=== PATIENT | female | born 1970 | race Caucasian/White ===

== ENCOUNTER 2025-09-29 16:30 | Emergency (ER) | payer OTHER ==
[~2025-09-29] VITALS: Ht 160 cm; Wt 59.9 kg
[2025-09-29 20:46] VITALS: BP 105/70; TEMP 98; O2SAT 98
== END 2025-09-29 20:47 | disposition home or self-care (01) ==
LOC: ER 16:34
DX: S01.01XA Laceration without foreign body of scalp, initial encounter (principal); F32.A Depression, unspecified; R51.9 Headache, unspecified; W01.0XXA Fall on same level from slipping, tripping and stumbling without subsequent striking against object, initial encounter; Y93.89 Activity, other specified; Y92.89 Other specified places as the place of occurrence of the external cause; Y99.8 Other external cause status
CPT/HCPCS: 12001; 36415; 70450; 80320; 99284; A6403; G0480

== ENCOUNTER 2025-10-01 13:27 | Emergency (ER) | payer OTHER ==
[~2025-10-01] VITALS: Ht 170.2 cm; Wt 63.5 kg
[2025-10-01] MEDS: IV NS 0.9% 1,000 ML BAG IV ONE (14:01)
[2025-10-01 14:23] LABS: PLATELET COUNT (AUTO) 319 K/uL (150-450); RED BLOOD CELL COUNT(AUTO) 4.94 MIL/uL (4.0-5.2); RED CELL DISTRIBUTION WIDTH 13.2 % (11.5-15.0); WHITE BLOOD COUNT (AUTO) 8.2 K/uL (4.3-11.0)
[2025-10-01 14:30] LABS: CALCIUM, SERUM 8.9 mg/dL (8.5-10.1); CREATININE 0.7 mg/dL (0.6-1.3); SODIUM SERUM 141 mmol/L (136-145); UREA NITROGEN, BLOOD 12 mg/dL (7-18)
[2025-10-01 14:35] LABS: APPEARANCE,URINE CLEAR (CLEAR); BLOOD, URINE 2+ Ery/uL (NEGATIVE); LEUKOCYTE ESTERASE ,URINE 2+ (NEGATIVE); NITRITE, URINE NEGATIVE (NEGATIVE); UGLUCOSE NEGATIVE (NEGATIVE)
[2025-10-01 14:37] LABS: ALCOHOL, BLOOD 162 mg/dL (0-10); ASPARTATE AMINOTRANSFERASE 40 U/L (15-37); TOTAL PROTEIN, SERUM 8.5 g/dL (6.4-8.2)
[2025-10-01 14:46] LABS: AMPHETAMINE, URINE NEGATIVE (NEGATIVE); BARBITURATE, URINE NEGATIVE (NEGATIVE); CANNABINOID, URINE NEGATIVE (NEGATIVE); COCCAINE, URINE NEGATIVE (NEGATIVE); OPIATE, URINE NEGATIVE (NEGATIVE)
[2025-10-01 14:47] LABS: BENZODIAZEPINE, URINE POSITIVE (NEGATIVE)
[2025-10-01 14:56] LABS: SQUAMOUS EPITHELIAL CELL,UR Many /HPF (None Seen)
[2025-10-01 14:57] LABS: ADD URINE CULTURE YES
[2025-10-01] MEDS ORDERED: ACETAMINOPHEN 325 MG TABLET ONE (16:25)
[2025-10-01] MEDS: ACETAMINOPHEN 325 MG TABLET PO ONE (16:28)
[2025-10-01 20:16] VITALS: BP 121/75; TEMP 98.2; O2SAT 99
== END 2025-10-01 20:17 | disposition home or self-care (01) ==
LOC: ER 13:44
DX: S01.01XA Laceration without foreign body of scalp, initial encounter (principal); F10.129 Alcohol abuse with intoxication, unspecified; R10.20 Pelvic and perineal pain unspecified side; Z88.6 Allergy status to analgesic agent; Z79.899 Other long term (current) drug therapy; W01.0XXA Fall on same level from slipping, tripping and stumbling without subsequent striking against object, initial encounter; Y93.89 Activity, other specified; Y92.89 Other specified places as the place of occurrence of the external cause; Y99.8 Other external cause status; Y90.6 Blood alcohol level of 120-199 mg/100 ml
CPT/HCPCS: 99285; 96360; 73080; 70450; 73110; 85025; 80048; 87086; 80076; 81001; 36415; 82962; 84702; 80143; 80320; 80307; J7030; G0480

== ENCOUNTER 2025-10-04 12:52 | Emergency (ER) | payer OTHER ==
[~2025-10-04] VITALS: Ht 162.6 cm; Wt 50.8 kg
[2025-10-04 13:17] VITALS: BP 111/89; TEMP 98.1
[2025-10-04 13:37] VITALS: O2SAT 97
== END 2025-10-04 13:38 | disposition home or self-care (01) ==
LOC: ER 13:17
DX: S01.01XD Laceration without foreign body of scalp, subsequent encounter (principal); Z88.6 Allergy status to analgesic agent; X58.XXXD Exposure to other specified factors, subsequent encounter